=== PATIENT | female | born 1940 | race Caucasian/White ===

== ENCOUNTER 2017-12-22 06:57 | Emergency (ER) | payer MEDICARE ==
[~2017-12-22] VITALS: Ht 162.6 cm; Wt 61.2 kg
[2017-12-22] MEDS ORDERED: PROMETHAZINE HCL (IM) 25 MG/ML VIAL IV STA (07:27)
[2017-12-22] MEDS ORDERED: SODIUM CHLORIDE 0.9% 1000ML 1,000 ML IV STA (07:27)
[2017-12-22 07:36] LABS: BASOPHILS % 0.2 % (0.0-1.0); EOSINOPHILS # (AUTO) 0.1 (0.0-0.4); EOSINOPHILS % 1.1 % (0.0-6.0); HEMATOCRIT 41.2 % (34.2-44.1); HEMOGLOBIN 15.3 g/dL (12.0-16.0); LYMPHOCYTES # (AUTO) 2.5 (1.0-3.2); LYMPHOCYTES % 20.5 % (18.0-39.1); MEAN CORPUSCULAR HEMOGLOBIN 31.4 pg (28-32); MEAN CORPUSCULAR HGB CONC 37.1 g/dL (31-35); MEAN CORPUSCULAR VOLUME 84.6 fL (81-99); MONOCYTES # (AUTO) 0.6 (0.2-0.8); MONOCYTES % 4.6 % (4.4-11.3); NEUTROPHILS # (AUTO) 8.9 (2.1-6.9); NEUTROPHILS % 73.1 % (38.7-80.0); PLATELET COUNT 217 x10e3/uL (140-360); RED BLOOD COUNT 4.87 x10e6/uL (3.6-5.1); RED CELL DISTRIBUTION WIDTH 12.5 % (11.7-14.4)
[2017-12-22 08:00] LABS: ALANINE AMINOTRANSFERASE 23 IU/L (0-55); ALBUMIN 4.3 g/dL (3.5-5.0); ALBUMIN/GLOBULIN RATIO 1.2 (0.8-2.0); ALKALINE PHOSPHATASE 117 IU/L (40-150); ANION GAP 15.7 mmol/L (8-16); BLOOD UREA NITROGEN < 5 mg/dL (7-26); CALCIUM 9.2 mg/dL (8.4-10.2); CARBON DIOXIDE 23 mmol/L (22-29); CHLORIDE 91 mmol/L (98-107); CREATINE KINASE 124 IU/L (29-168); CREATININE, SERUM 0.89 mg/dL (0.57-1.11); EST GLOMERULAR FILTRATION RATE > 60 ML/MIN (60-); GLUCOSE 139 mg/dL (74-118); LIPASE 20 U/L (8-78); SODIUM 127 mmol/L (136-145)
[2017-12-22 08:03] LABS: BUN/CREATININE RATIO 6 (6-25)
[2017-12-22 08:04] LABS: POTASSIUM 2.7 mmol/L (3.5-5.1)
[2017-12-22] MEDS ORDERED: POTASSIUM CHLORIDE 20 MEQ TAB CR PO STA (08:06)
[2017-12-22 08:37] LABS: BILIRUBIN,URINE NEGATIVE (NEGATIVE); KETONES,URINE NEGATIVE (NEGATIVE); LEUKOCYTE ESTERASE ,URINE TRACE (NEGATIVE); NITRITE,URINE NEGATIVE (NEGATIVE); URINE UROBILINOGEN 0.2 mg/dL (0.2 - 1)
[2017-12-22 08:44] LABS: CLARITY,URINE CLEAR (CLEAR); COLOR,URINE YELLOW (YELLOW); PROTEIN,URINE DIPSTICK TRACE (NEGATIVE)
[2017-12-22 08:49] LABS: EPITHELIAL CELLS,URINE FEW /LPF; MUCUS,URINE FEW (RARE); RBC,URINE 0-5 /HPF (0-5); WBC,URINE (MAN) 0-5 /HPF (0-5)
[2017-12-22] MEDS ORDERED: TETRACAINE HCL 0.5% OPTH SOLN 4 ML BTL ONE (10:46)
[2017-12-22] MEDS ORDERED: FLUORESCEIN SOD(OPTH) 1 MG STRP ONE (10:46)
[2017-12-22] MEDS ORDERED: SODIUM CHLORIDE 0.9% 1000ML 1,000 ML ONE (10:47)
[2017-12-22] MEDS ORDERED: EYE IRRIGATION (OPTH) 120 ML BTL ONE (10:47)
== END 2017-12-22 09:40 | disposition home or self-care (01) ==
LOC: ER 06:57
DX: R11.2 Nausea with vomiting, unspecified (principal); E87.6 Hypokalemia; I10 Essential (primary) hypertension; E78.5 Hyperlipidemia, unspecified
CPT/HCPCS: 36415; 80053; 81001; 82550; 82553; 83690; 84484; 85025; 87086; 93005; 99284; J2550; J7030

== ENCOUNTER 2018-04-02 19:56 | Inpatient (IN) | payer MEDICARE ==
[~2018-04-02] VITALS: Ht 162.6 cm; Wt 58.3 kg
--- OUTSIDE RECORDS SUMMARY | 2018-04-02 19:59 | XMS REPORT ---
Author Organization Unknown Address [address] [place] [address] Phone [phone] Care Team Providers Care Commissioned Sales Associate Name Role Phone CRISTÓBAL "NISHA" GANESH BARFIELD 3 [phone] PAIGE HANLEY MD 111 [phone] Allergies Code Code System Name Reaction Severity Status Onset NKDA Medications Name Status Start Date Stop Date albuterol sulfate 2.5 mg/3 mL (0.083 %) solution for nebulization Active Not available alendronate 70 mg tablet Completed 06/05/2017 Aspirin Low Dose 81 mg tablet,delayed release Take 1 tablet every day by oral route for 90 days. Active Not available azithromycin 250 mg tablet Completed 12/06/2017 benazepril 20 mg tablet Take 1 tablet every day by oral route for 90 days. Active Not available ceftriaxone 1 gram solution for injection Take 1 g by injection route. Completed 12/06/2017 cephalexin 500 mg capsule Completed 09/05/2017 Cheratussin AC 10 mg-100 mg/5 mL oral liquid Take 10 mL every 4 hours by oral route. Completed 12/06/2017 12/06/2017 Citracal + D Slow Release 600 mg calcium-500 unit tablet,ext.release Take 1 tablet every day by oral route for 90 days. Active Not available Depo-Medrol 80 mg/mL suspension for injection Take 1 mL by injection route. Completed 12/06/2017 diazepam 2 mg tablet Take 1 tablet 3 times a day by oral route for 30 days. Completed 2017 diazepam 5 mg tablet Completed 03/28/2017 dicyclomine 20 mg tablet Active Not available famotidine 40 mg tablet Take 1 tablet every day by oral route at bedtime for 90 days. Active Not available hydrochlorothiazide 25 mg tablet Take 1 tablet every day by oral route for 90 days. Active Not available lactulose 10 gram/15 mL (15 mL) oral solution Take 30 mL twice a day by oral route for 90 days. Completed 03/28/2017 lactulose 10 gram/15 mL oral solution Completed 06/05/2017 latanoprost 0.005 % eye drops Active Not available levalbuterol HFA 45 mcg/actuation aerosol inhaler Completed 11/21/2017 levocetirizine 5 mg tablet Take 1 tablet every day by oral route as needed for 90 days. Completed 07/2018 Linzess 72 mcg capsule Take 1 capsule every day by oral route for 16 days. Completed 08/09/2017 lorazepam 0.5 mg tablet Take 1 tablet 3 times a day by oral route as needed for 30 days. Active Not available meloxicam 15 mg tablet Take 1 tablet every day by oral route for 90 days. Completed 12/27/2017 methocarbamol 750 mg tablet Take 1 tablet every day by oral route for 90 days. Completed 12/07/2016 ondansetron HCl 4 mg tablet Take 1 tablet every day by oral route. Completed 12/06/2017 12/27/2017 pantoprazole 40 mg tablet,delayed release Take 1 tablet every day by oral route in the morning for 90 days. Active Not available paroxetine 10 mg tablet Completed 12/06/2017 promethazine 12.5 mg tablet take 1 or 2 tablets every 6 hours as needed for nausea Active Not available raloxifene 60 mg tablet Completed 12/07/2016 simvastatin 40 mg tablet Take 1 tablet every day by oral route in the evening for 90 days. Active Not available Tylenol Extra Strength 500 mg tablet Take 2 tablets every 8 hours by oral route as needed for 90 days. Completed 09/05/2017 Ventolin HFA 90 mcg/actuation aerosol inhaler INHALE TWO PUFFS BY MOUTH EVERY 6 HOURS NEEDED Completed 11/21/2017 Zylet 0.3 %-0.5 % eye drops,suspension Completed 03/07/2017 Problems Name Status Onset Date Source Hypercholesterolemia Active 11/20/2016 Anxiety Active 11/20/2016 Hypertensive Disorder Active 11/20/2016 Gastroesophageal Reflux Disease Active 11/20/2016 Hiatal Hernia Active 11/20/2016 Irritable Bowel Syndrome Characterized by Constipation Active 11/20/2016 Chronic Sciatica Active 11/20/2016 Osteoporosis Active 11/20/2016 Nausea Active 11/20/2016 Age Related Macular Degeneration Active 09/05/2017 Open-angle Glaucoma - Borderline Active 09/05/2017 Atherosclerosis of Aorta Active 12/05/2017 Procedures Date Name Performed by 11/05/2010 Eye Surgery Information not available 11/05/2003 Cholecystectomy Information not available 11/05/2001 Hernia Repair Information not available 11/05/1983 Hysterectomy (Partial) Information not available 11/20/2016 MAMMO, Screening, Digital, Bilateral [facility] [address] [place] [address] (Work Place) 11/20/2016 Bone Density [facility] [address] [place], [place] [id number] (Work Place) 11/20/2016 Electrocardiogram [facility] [address] [facility] [address] [place] [phone] (Work Place) 03/28/2017 XR, Chest, 2 View [facility]) [address] [place], [place] [id number] (Work Place) 11/13/2017 MAMMO, Screening, Digital, Bilateral [facility]) [address] [place], [place] [id number] (Work Place) 12/06/2017 Electrocardiogram [facility] [address] [facility] [address] [place] [address] (Work Place) Lab Results Date Name Specimen Result Interpretation Description Value Range Status Address 12/27/2017 BMP, Serum or Plasma Low Bun 7.0 mg/dL 9.8-20.1 mg/dL Final [facility]: [address] Glucose 87 mg/dL 70-99 mg/dL Final [facility]: [address] Creatinine 0.74 mg/dL 0.57-1.11 mg/dL Final [facility]: [address] eGFR Non- >60 mL/min/1.73m2 >60 mL/min/ 1.73m2 Final [facility]: [address] [place] [address], [place] eGFR - >60 mL/min/1.73m2 >60 mL/min/1.73m2 Final [facility]: [address] [place] [address], [place] Low Sodium 134 mEq/L 136-145 mEq/L Final [facility]: [address] Potassium 4.2 mEq/L 3.5-5.1 mEq/L Final [facility]: [address] [place] Chloride 98 mmol/L 98-107 mmol/L Final [facility]: [address] [place] Calcium 9.2 mg/dL 8.4-10.2 mg/dL Final [facility]: [address] [place] Co2 27.7 mmol/L 23.0-31.0 mmol/L Final [facility]: [address] [place] Anion Gap 8 calc Final [facility]: [address] [place] 12/06/2017 Tech Slide Review High White Blood Cell Count 11.5 thousand/uL 3.8-10.8 thousand/uL Final [facility]: [address] [place] Normal Red Blood Cell Count 5.02 million/uL 3.80-5.10 million/ uL Final [facility]: [address] [place] Normal Hemoglobin 15.5 g/dL 11.7-15.5 g/dL Final [facility]: [address] [place] Normal Hematocrit 44.9 % 35.0-45.0 % Final [facility]: [address] [place] Normal Mcv 89.4 fL 80.0-100.0 fL Final [facility]: [address] [place] Normal Mch 30.9 pg 27.0-33.0 pg Final [facility]: [address] [place] Normal Mchc 34.5 g/dL 32.0-36.0 g/dL Final [facility]: [address] [place] Normal Rdw 12.7 % 11.0-15.0 % Final [facility]: [address] [place] Normal Platelet Count 246 thousand/uL 140-400 thousand/uL Final [facility]: [address] [place] Normal Mpv 10.1 fL 7.5-12.5 fL Final [facility]: [address] [place] 12/06/2017 Differential, Manual, Blood High Absolute Neutrophils 8131 cells/uL 5107-3701 cells/uL Final [facility]: [address] [place] Normal Absolute Lymphocytes 2553 cells/uL 850-3900 cells/uL Final [facility]: [address] [place] Normal Absolute Monocytes 472 cells/uL 200-950 cells/uL Final [facility]: [address] [place] Normal Absolute Eosinophils 345 cells/uL 15-500 cells/uL Final [facility]: [address] [place] Normal Absolute Basophils 0 cells/uL 0-200 cells/uL Final [facility]: [address] [place] Normal Neutrophils 70.7 % Final [facility]: [address] [place] Normal Lymphocytes 22.2 % Final [facility]: [address] [place] Normal Monocytes 4.1 % Final [facility]: [address] [place] Normal Eosinophils 3.0 % Final [facility]: [address] [place] Normal Basophils 0 % Final [facility]: [address] [place] 12/06/2017 CMP, Serum or Plasma Alt 31 U/L 0-55 U/L Final [facility]: [address] Ast 27 U/L 5-34 U/L Final [facility]: [address] [place] [address] Bun 10.0 mg/dL 9.8-20.1 mg/dL Final [facility]: [address] [place] [address] Alk Phos 112 unit/L 40-150 unit/L Final [facility]: [address] [facility] High Glucose 108 mg/dL 70-99 mg/dL Final [facility]: [address] [place] [address] Albumin 4.4 g/dL 3.5-5.0 g/dL Final [facility] [address] [facility] Creatinine 0.84 mg/dL 0.57-1.11 mg/dL Final [facility]: [address] [facility] eGFR Non- >60 mL/min/1.73m2 >60 mL/min/ 1.73m2 Final [facility]: [address] Total Bilirubin 1.1 mg/dL 0.2-1.2 mg/dL Final [facility]: [address] [facility] eGFR - >60 mL/min/1.73m2 >60 mL/min/1.73m2 Final [facility]: [address] [facility] Low Sodium 135 mEq/L 136-145 mEq/L Final [facility]: [address] Potassium 4.7 mEq/L 3.5-5.1 mEq/L Final [facility]: [address] Low Chloride 96 mmol/L 98-107 mmol/L Final [facility]: [address] Total Protein 7.6 g/dL 6.4-8.3 g/dL Final [facility]: [address] Calcium 10.0 mg/dL 8.4-10.2 mg/dL Final [facility]: [address] Co2 29.0 mmol/L 23.0-31.0 mmol/L Final [facility]: [address] Anion Gap 10 calc Final [facility]: [address] [facility] 12/06/2017 Lipid Panel, Serum Hdl 40 mg/dL 40-60 mg/dL Final [facility]: [address] Triglyceride 97 mg/dL 0-149 mg/dL Final [facility]: [address] VLDL Calc. 19 mg/dL Final [facility]: [address] cholesterol/HDL Ratio 4.7 mg/dL Final [facility]: [address] non-HDL Cholesterol Calc. 149 mg/dL 0-160 mg/dL Final [facility]: [address] Cholesterol 189 mg/dL 0-199 mg/dL Final [facility]: [address] LDL Calc. 130 mg/dL 0-130 mg/dL Final [facility]: [address] 12/06/2017 T4, Total, Serum T4 Total 7.46 ug/dL 4.87-11.72 ug/ dL Final [facility]: [address] [place] [address], [place] 12/06/2017 TSH, Serum or Plasma Tsh 2.311 uIU/mL 0.350-4.940 uIU /mL Final [facility]: [address] [place] [address], [place] 08/09/2017 Culture, Urine ABNORMAL Culture, Urine, Routine see note Final [facility]: [address] [address], [place] 11/20/2016 Lipid Panel, Serum High Cholesterol, Total 206 mg/dL 125-200 mg/dL Final [facility] Lab: [address], [place] Normal HDL Cholesterol 49 mg/dL > or=46 mg/dL Final [facility] Lab: [address], [place] Normal Triglycerides 106 mg/dL <150 mg/dL Final [facility] Lab: [address], [place] High LDL-cholesterol 136 mg/dL (calc) <130 mg/dL (calc) Final [facility] Lab: [address], [place] Normal Chol/hdlc Ratio 4.2 (calc) < or=5.0 (calc) Final [facility] Lab: [address], [place] Normal Non HDL Cholesterol 157 mg/dL (calc) Final [facility] Lab: [address], [place] 11/20/2016 CMP, Serum or Plasma High Glucose 115 mg/dL 65-99 mg/ dL Final [facility] Lab: [address], [place] Normal Urea Nitrogen (BUN) 11 mg/dL 7-25 mg/dL Final [facility] Lab: [address], [place] Normal Creatinine 0.90 mg/dL 0.60-0.93 mg/dL Final [facility] Lab: [address], [place] Normal eGFR Non-afr. [place] 62 mL/min/1.73m2 > or=60 mL/min/ 1.73m2 Final [facility] Lab: [address], [place] Normal eGFR 72 mL/min/1.73m2 > or=60 mL/min/ 1.73m2 Final [facility] Lab: [address], [place] BUN/creatinine Ratio not applicable (calc) 6-22 (calc) Final [facility] Lab: [address] [facility], [place] Normal Sodium 139 mmol/L 135-146 mmol/L Final [facility] Lab: [address] [facility], [place] Normal Potassium 4.0 mmol/L 3.5-5.3 mmol/L [facility] Lab: [address] [facility], [place] Normal Chloride 101 mmol/L 98-110 mmol/L [facility] Lab: [address] [facility], [place] Normal Carbon Dioxide 27 mmol/L 20-31 mmol/L [facility] Lab: [address] [facility], [place] Normal Calcium 9.8 mg/dL 8.6-10.4 mg/dL [facility] Lab: [address] [facility], [place] Normal Protein, Total 7.5 g/dL 6.1-8.1 g/dL Final [facility] Lab: [address] [place] [address], [place] Normal Albumin 4.6 g/dL 3.6-5.1 g/dL Final [facility] Lab: [address] [place] [address], [place] Normal Globulin 2.9 g/dL (calc) 1.9-3.7 g/dL (calc) [facility] Lab: [address] [place] [address], [place] Albumin/globulin Ratio 1.6 (calc) 1.0-2.5 (calc) [facility] Lab: [address] [place] [address], [place] Normal Bilirubin, Total 0.6 mg/dL 0.2-1.2 mg/dL Final [facility] Lab: [address] [place] [address], [place] Normal Alkaline Phosphatase 100 U/L 33-130 U/L [facility] Lab: [address] [place] [address], [place] Normal Ast 22 U/L 10-35 U/L [facility] Lab: [address] [facility], [place] Normal Alt 18 U/L 6-29 U/L [facility] Lab: [address] [facility], [place] 11/20/2016 CBC W/ Auto Diff Normal White Blood Cell Count 10.4 thousand/uL 3.8-10.8 thousand/uL Final [facility] Lab: [address] [facility], [place] Normal Red Blood Cell Count 4.68 million/uL 3.80-5.10 million/ uL Final [facility] Lab: [address], [place] Normal Hemoglobin 14.4 g/dL 11.7-15.5 g/dL Final [facility] Lab: [address], [place] Normal Hematocrit 43.8 % 35.0-45.0 % Final [facility] Lab: [address], [place] Normal Mcv 93.7 fL 80.0-100.0 fL Final [facility] Lab: [address], [place] Normal Mch 30.7 pg 27.0-33.0 pg Final [facility] Lab: [address], [place] Normal Mchc 32.8 g/dL 32.0-36.0 g/dL Final [facility] Lab: [address], [place] Normal Rdw 13.5 % 11.0-15.0 % Final [facility] Lab: [address], [place] Normal Platelet Count 222 thousand/uL 140-400 thousand/uL Final [facility] Lab: [address], [place] Normal Mpv 9.3 fL 7.5-11.5 fL Final [facility] Lab: [address], [place] Normal Absolute Neutrophils 6448 cells/uL 6055-0603 cells/uL Final [facility] Lab: [address], [place] Normal Absolute Lymphocytes 3318 cells/uL 850-3900 cells/uL Final [facility] Lab: [address], [place] Normal Absolute Monocytes 458 cells/uL 200-950 cells/uL Final [facility] Lab: [address], [place] Normal Absolute Eosinophils 146 cells/uL 15-500 cells/uL Final [facility] Lab: [address], [place] Normal Absolute Basophils 31 cells/uL 0-200 cells/uL Final [employer] [facility] Lab: [address], [place] Normal Neutrophils 62.0 % Final [facility] Lab: [address], [place] Normal Lymphocytes 31.9 % Final [facility] Lab: [address], [place] Normal Monocytes 4.4 % Final [facility] Lab: [address], [place] Normal Eosinophils 1.4 % Final [facility] Lab: [address] [facility], [place] Normal Basophils 0.3 % Final [facility] Lab: [address] [facility], [place] 11/20/2016 T4, Total, Serum T4, Total (Thyroxine) 8.6 mcg/dL 4.8 -10.4 mcg/dL Final [facility] Lab: [address] [facility], [place] 11/20/2016 TSH, Serum or Plasma Normal Tsh 2.91 mIU/L 0.40-4.50 mIU/L Final [facility] Lab: [address] [facility], [place] Electrocardiogram No observation recorded. [facility]: [address] [facility] [address], [place] Urinalysis, Dipstick Color Color dark yellow [facility]: [address] [facility] [address], [place] Color Appearance cloudy [facility]: [address] [facility] [address], [place] Color Glucose negative [facility]: [address] [facility] [address], [place] Color Bilirubin negative [facility]: [address] [facility] [address], [place] Color Ketones small [facility]: [address] [facility] [address], [place] Color Specific Hunter 1.010 [facility]: [address] [facility] [address], [place] Color Blood small [facility]: [address] [facility] [address], [place] Color PH 6.0 [facility]: [address] [facility] [address], [place] Color Protein negative [facility]: [address] [facility] [address], [place] Color Urobilinogen 1 [facility]: [address] [facility] [address], [place] Color Nitrites positive [facility]: [address] [facility] [address], [place] Color Leukocytes moderate [facility]: [address] [facility] [address], [place] Electrocardiogram Rate & Rhythm [facility]: [address] [facility] [address], [place] Qrs [facility]: [address] [facility] [address], [place] CA Interval [facility]: [address] [facility] 200, [place] QRS Duration [facility]: [address] [facility] 200, [place] QT Interval [facility]: [address] [facility] 200, [place] Past Encounters 01/14/2018 Anorexia Symptom; Hypertensive Disorder; Anxiety; Nausea; Open-angle Glaucoma - Borderline Cristóbal Mcmahon MD: [id number] [facility], [facility] [address], [place] [address], Ph. 12/27/2017 Nausea; Hypokalemia Alpa Brady RADIOPHONE OPERATOR: [id number] [facility], [address] [address], Ph. 12/06/2017 Adult Health Examination; Body Mass Index 20-24 - Normal; Hypertensive Disorder ; Gastroesophageal Reflux Disease; Chronic Sciatica; Hypercholesterolemia; Atherosclerosis of Aorta; Anxiety; Irritable Bowel Syndrome Characterized by Constipation; Age Related Macular Degeneration; Open-angle Glaucoma - Borderline ; Nausea; Osteoporosis; Depression Screening; Advance Directive Discussed with Patient; Screening for Malignant Neoplasm of Breast; Screening for Malignant Neoplasm of Colon; Screening for Osteoporosis Cristóbal Mcmahon MD: [id number] [facility], [address] [address], Ph. 11/21/2017 Asthmatic Bronchitis Vladimir Winn MD: [address] [place] [phone], Ph. 11/13/2017 Anxiety; Gastroesophageal Reflux Disease; Chronic Sciatica; Screening Mammography; Atherosclerosis of Aorta; Hypertensive Disorder; Irritable Bowel Syndrome Characterized by Constipation; Age Related Macular Degeneration; Open- angle Glaucoma - Borderline; Hypercholesterolemia; Osteoporosis; Hiatal Hernia Cristóbal Mcmahon MD: [id number] [facility], [address] [address], Ph. 09/05/2017 Anxiety; Hypertensive Disorder; Gastroesophageal Reflux Disease; Atherosclerosis of Aorta Cristóbal Mcmahon MD: [id number] [facility], [address] [address], Ph. 08/09/2017 Acute Urinary Tract Infection; Influenza Vaccination; Body Mass Index 25-29 - Overweight Carmen Forman MD: [id number] [facility], [address] [address], Ph. 06/05/2017 Anxiety; Gastroesophageal Reflux Disease; Irritable Bowel Syndrome Characterized by Constipation; Body Mass Index 25-29 - Overweight; Glaucoma Cristóbal Mcmahon MD: [id number] [facility], [address] [address], Ph. 03/28/2017 Hypertensive Disorder; Impacted Cerumen in Right Ear; Cough; Acute Bronchitis Alpa Abreu RADIOPHONE OPERATOR: [id number] [facility], [address], [place] [address], Ph. 03/07/2017 Anxiety; Gastroesophageal Reflux Disease; Hypertensive Disorder; Chronic Sciatica; Hypercholesterolemia; Irritable Bowel Syndrome; Chronic Constipation Cristóbal Mcmahon MD: [id number] [facility], [facility] [address], [place] [address], Ph. 12/07/2016 Hypercholesterolemia; Osteoporosis; Chronic Sciatica; Hypertensive Disorder; Gastroesophageal Reflux Disease Cristóbal Mcmahon MD: [id number] [facility], [facility] [address], [place] [address], Ph. 11/20/2016 Adult Health Examination; Body Mass Index 20-24 - Normal; Hypertensive Disorder ; Hypercholesterolemia; Primary Open Angle Glaucoma; Osteoporosis; Gastroesophageal Reflux Disease; Anxiety; Allergic Rhinitis; Screening for Malignant Neoplasm of Breast; Chronic Sciatica; Depression Screening; Nausea; Hiatal Hernia CARLOS Real: [address] [facility], [facility] [address], [place] [address], Ph. Social History Smoking Status Never Smoker Vaccine List Vaccine Type influenza, high dose seasonal 08/09/20170.5 mL pneumococcal, unspecified formulation 11/05/2009 11/05/2011 Notes: DECLINE'S ALL VACCINE'S-12/06/2017 Plan of Care Patient Instructions Increase PO fluids. Complete all antibiotics as prescribed. Call or RTC for worsening of symptoms or no improvement in 2-3 days. Reminders Provider Appointments None recorded. Lab None recorded. Referral None recorded. Procedures None recorded. Surgeries None recorded. Imaging None recorded. Vitals 01/14/2018 10:45AM Est Patient Height Weight BMI Blood Pressure 5 ft 3 in 132 lbs 23.4 kg/m2 (1) 185/101 mm[Hg] (2) 183/95 mm[Hg] 12/27/2017 02:45PM Est Patient Height Weight BMI Blood Pressure 5 ft 3 in 137.5 lbs 24.4 kg/m2 (1) 163/90 mm[Hg] (2) 155/88 mm[Hg] 12/06/2017 01:45PM AWV Height Weight BMI Blood Pressure 5 ft 3 in 137.2 lbs 24.3 kg/m2 124/74 mm[Hg] 11/21/2017 02:45PM Est Patient Height Weight Blood Pressure 5 ft 3 in 132/78 mm[Hg] 11/13/2017 04:15PM Est Patient Height Weight BMI Blood Pressure 5 ft 3 in 144 lbs 25.5 kg/m2 175/90 mm[Hg] 09/05/2017 09:15AM Est Patient Height Weight BMI Blood Pressure 5 ft 3 in 141 lbs 25 kg/m2 156/81 mm[Hg] 08/09/2017 02:45PM Work In Same Day Height Weight BMI Blood Pressure 5 ft 3 in 142 lbs 25.2 kg/m2 145/82 mm[Hg] 06/05/2017 09:15AM Est Patient Height Weight BMI Blood Pressure 5 ft 3 in 145.6 lbs 25.8 kg/m2 (1) 176/94 mm[Hg] (2) 168/84 mm[Hg] 03/28/2017 10:00AM Est Patient Height Weight BMI Blood Pressure 5 ft 3 in 149 lbs 26.4 kg/m2 134/87 mm[Hg] 03/07/2017 04:15PM Est Patient Height Weight BMI Blood Pressure 5 ft 3 in 144 lbs 25.5 kg/m2 191/105 mm[Hg] 12/07/2016 04:30PM Est Patient Height Weight BMI Blood Pressure 5 ft 3 in 137.2 lbs 24.3 kg/m2 162/85 mm[Hg] 11/20/2016 10:30AM MYSQL DBA/EST CPX Height Weight BMI Blood Pressure 5 ft 3 in 139 lbs 24.6 kg/m2 171/90 mm[Hg]
[2018-04-02 20:57] LABS: BASOPHILS % 0.2 % (0.0-1.0); EOSINOPHILS % 0.3 % (0.0-6.0); HEMATOCRIT 39.6 % (34.2-44.1); HEMOGLOBIN 14.4 g/dL (12.0-16.0); LYMPHOCYTES # (AUTO) 2.4 (1.0-3.2); LYMPHOCYTES % 15.9 % (18.0-39.1); MEAN CORPUSCULAR HEMOGLOBIN 32.4 pg (28-32); MEAN CORPUSCULAR HGB CONC 36.4 g/dL (31-35); MONOCYTES # (AUTO) 0.8 (0.2-0.8); NEUTROPHILS # (AUTO) 11.8 (2.1-6.9); NEUTROPHILS % 77.9 % (38.7-80.0); PLATELET COUNT 300 x10e3/uL (140-360); RED BLOOD COUNT 4.45 x10e6/uL (3.6-5.1); RED CELL DISTRIBUTION WIDTH 12.5 % (11.7-14.4)
[2018-04-02 21:16] LABS: ALANINE AMINOTRANSFERASE 18 IU/L (0-55); ALBUMIN 4.2 g/dL (3.5-5.0); ALBUMIN/GLOBULIN RATIO 1.2 (0.8-2.0); ALKALINE PHOSPHATASE 97 IU/L (40-150); ANION GAP 16.4 mmol/L (8-16); BLOOD UREA NITROGEN 10 mg/dL (7-26); BUN/CREATININE RATIO 7 (6-25); CALCIUM 9.8 mg/dL (8.4-10.2); CARBON DIOXIDE 23 mmol/L (22-29); CHLORIDE 91 mmol/L (98-107); CREATINE KINASE 61 IU/L (29-168); CREATININE, SERUM 1.38 mg/dL (0.57-1.11); EST GLOMERULAR FILTRATION RATE 37 ML/MIN (60-); GLUCOSE 126 mg/dL (74-118); POTASSIUM 3.4 mmol/L (3.5-5.1); SODIUM 127 mmol/L (136-145)
--- NOTE | 2018-04-02 21:57 | Diagnostic Imaging Report ---
EXAMINATION: Head CT HISTORY: Syncope, possible head trauma COMPARISON: None. TECHNIQUE: Multidetector axial images were obtained without contrast from the foramen magnum to the vertex . The images were reconstructed using brain and bone algorithms. Thin section brain images were reformatted into coronal and sagittal planes. Intravenous contrast: None. Motion/streaking artifact limits the evaluation of the skull base and posterior cranial fossa. FINDINGS: Parenchyma: 1. Few scattered white matter hypodensities, most likely nonspecific chronic microvascular ischemic changes. 2. No mass or hemorrhage. No CT evidence of acute territorial vascular insult. Extra-axial spaces:No abnormal density. No extra-axial fluid collections Brain volume: Normal for age. Ventricles: No hydrocephalus or displacement. Arteries: No density suggestive of thrombus. Dural sinuses: No abnormal density. Extra-axial spaces: No abnormal density. Foramen magnum: No mass, Chiari malformation, or basilar invagination. Sella: No obvious mass. Paranasal/mastoid sinuses: Imaged portions unremarkable. Skull/Scalp: No lytic or blastic lesions. No fractures. IMPRESSION: 1. No acute post traumatic intracranial hemorrhage. 2. Mild chronic microvascular ischemic changes. Signed by: Dr. Ivelisse Cole M.D. on 04/02/2018 9:54 PM
[2018-04-02 22:12] LABS: CLARITY,URINE SL CLOUDY (CLEAR); COLOR,URINE YELLOW (YELLOW); LEUKOCYTE ESTERASE ,URINE TRACE (NEGATIVE); NITRITE,URINE NEGATIVE (NEGATIVE); PROTEIN,URINE DIPSTICK 2+ (NEGATIVE)
[2018-04-02 22:13] LABS: BILIRUBIN,URINE 2+ (NEGATIVE); KETONES,URINE TRACE (NEGATIVE); URINE UROBILINOGEN 8 mg/dL (0.2 - 1)
[2018-04-02 22:21] LABS: AMORPHOUS SEDIMENT,URINE MANY (FEW); BACTERIA,URINE MODERATE /HPF; EPITHELIAL CELLS,URINE MODERATE /LPF; MUCUS,URINE MODERATE (RARE); WBC,URINE (MAN) 21-50 /HPF (0-5)
--- NOTE | 2018-04-02 22:23 | Diagnostic Imaging Report ---
CHEST SINGLE (PORTABLE), 04/02/2018 8:37 PM Technique: CHEST SINGLE (PORTABLE) Comparison: None Clinical history: Syncope Findings: Normal cardiac silhouette. Lower parathoracic density which may reflect a hiatal hernia. Large lung volumes without consolidation or effusion. Impression: 1. No acute abnormality. 2. Probable hiatal hernia. 3. Calcific densities projecting over the lower hemithorax Recommend follow-up upright PA and lateral when feasible. Signed by: Dr Trisha Carrillo MD on 04/02/2018 10:19 PM
[2018-04-02] MEDS ORDERED: KCL 20MEQ/.9 SOD CHL 1,000 ML IV ONE (23:00)
[2018-04-02] MEDS ORDERED: ONDANSETRON HCL 4 MG ORAL DISINTEGRATING TAB PO PRN (23:00)
[2018-04-02] MEDS: CEFTRIAXONE SOD 1 GM VIAL IV SCH (23:30)
[2018-04-02] MEDS ORDERED: LORAZEPAM0.5 MG PO (23:35)
[2018-04-02] MEDS ORDERED: PANTOPRAZOLE SO40 MG PO (23:35)
[2018-04-02] MEDS ORDERED: SIMVASTATIN40 MG PO (23:35)
[2018-04-02] MEDS ORDERED: PRAMIPEXOLE DI0.5 MG PO (23:35)
[2018-04-02] MEDS ORDERED: HYDROCHLOROTHIA25 MG PO (23:35)
[2018-04-02] MEDS ORDERED: BENAZEPRIL HCL20 MG PO (23:35)
[2018-04-02] MEDS ORDERED: FAMOTIDINE40 MG PO (23:35)
[2018-04-02] MEDS ORDERED: DICYCLOMINE HCL20 MG PO (23:35)
[2018-04-02] MEDS ORDERED: LORAZEPAM 0.5 MG TAB PO PRN (23:45)
[2018-04-02] MEDS ORDERED: DICYCLOMINE HCL 20 MG TAB PO PRN (23:45)
--- OUTSIDE RECORDS SUMMARY | 2018-04-02 23:55 | XMS REPORT ---
Author Author [facility] Address Unknown Phone Unavailable Care Team Providers Care Community Health Director Name Role Phone ZARI ANNE Unavailable Unavailable Problems This patient has no known problems. Allergies, Adverse Reactions, Alerts This patient has no known allergies or adverse reactions. Medications This patient has no known medications. Results Test Description Test Time Test Comments Text Results Atomic Results Result Comments CT BRAIN WO [place] [address] Patient Name: PATO LEMA MR #: [id number] : 1940 Age/Sex: 78/F Req #: [id number] Adm Physician: Ordered by: ZARI ANNE MD Report # : [id number] Location: ER Room/Bed: Procedure: [id number] CT/CT BRAIN WO Exam Date: 04/02/18 Exam Time: 2134 REPORT STATUS: Signed EXAMINATION: Head CT HISTORY: Syncope , possible head trauma COMPARISON: None. TECHNIQUE: Multidetector axial images were obtained without contrast from the foramen magnum to the vertex . The images were reconstructed using brain and bone algorithms. Thin section brain images were reformatted into coronal and sagittal planes. Intravenous contrast: None. Motion/streaking artifact limits the evaluation of the skull base and posterior cranial fossa. FINDINGS: Parenchyma: 1. Few scattered white matter hypodensities, most likely nonspecific chronic microvascular ischemic changes. 2. No mass or hemorrhage. No CT evidence of acute territorial vascular insult. Extra-axial spaces:No abnormal density. No extra-axial fluid collections Brain volume: Normal for age. Ventricles: No hydrocephalus or displacement. Arteries : No density suggestive of thrombus. Dural sinuses: No abnormal density. Extra-axial spaces: No abnormal density. Foramen magnum : No mass, Chiari malformation, or basilar invagination. Sella: No obvious mass. Paranasal/mastoid sinuses: Imaged portions unremarkable. Skull/Scalp: No lytic or blastic lesions. No fractures. IMPRESSION: 1. No acute post traumatic intracranial hemorrhage. 2. Mild chronic microvascular ischemic changes. Signed by: Dr. Ilir Cole M.D. on 04/02/2018 9:54 PM Dictated By: ILIR COLE MD 53 Transcribed By: NADINE on 04/02/182153 COPY TO: ZARI ANNE MD CHEST SINGLE (PORTABLE) [place] [address] Patient Name: PATO LEMA MR #: [id number] : 1940 Age/Sex: 78/F Req #: [id number] Adm Physician: Ordered by: ZARI ANNE MD Report #: [id number] Location: ER Room/Bed: ___ Procedure: [id number] DX/CHEST SINGLE (PORTABLE) Exam Date: 04/02/18 Exam Time: 2143 REPORT STATUS: Signed CHEST SINGLE (PORTABLE), 04/02/2018 8:37 PM Technique: CHEST SINGLE (PORTABLE) Comparison: None Clinical history: Syncope Findings: Normal cardiac silhouette. Lower parathoracic density which may reflect a hiatal hernia. Large lung volumes without consolidation or effusion. Impression: 1. No acute abnormality. 2. Probable hiatal hernia. 3. Calcific densities projecting over the lower hemithorax Recommend follow-up upright PA and lateral when feasible. Signed by: Dr Espinoza Carrillo MD on 04/02/2018 10:19 PM Dictated By: ESPINOZA CARRILLO MD 18 Transcribed By: NADINE on 04/02/182218 COPY TO: ZARI ANNE MD
[2018-04-03] VITALS (8 sets, daily range): BP systolic 96–142; BP diastolic 46–81
[2018-04-03] MEDS ORDERED: LATANOPROST2.5 ML OP (01:57)
[2018-04-03 06:51] LABS: BASOPHILS % 0.3 % (0.0-1.0); EOSINOPHILS # (AUTO) 0.1 (0.0-0.4); HEMATOCRIT 31.8 % (34.2-44.1); HEMOGLOBIN 11.4 g/dL (12.0-16.0); LYMPHOCYTES # (AUTO) 2.1 (1.0-3.2); LYMPHOCYTES % 26.8 % (18.0-39.1); MEAN CORPUSCULAR HEMOGLOBIN 32.5 pg (28-32); MEAN CORPUSCULAR HGB CONC 35.8 g/dL (31-35); MEAN CORPUSCULAR VOLUME 90.6 fL (81-99); MONOCYTES # (AUTO) 0.7 (0.2-0.8); MONOCYTES % 8.4 % (4.4-11.3); PLATELET COUNT 217 x10e3/uL (140-360); RED BLOOD COUNT 3.51 x10e6/uL (3.6-5.1); RED CELL DISTRIBUTION WIDTH 12.6 % (11.7-14.4)
[2018-04-03 07:26] LABS: CREATINE KINASE 40 IU/L (29-168)
[2018-04-03 07:53] LABS: ALANINE AMINOTRANSFERASE 12 IU/L (0-55); ALBUMIN 3.2 g/dL (3.5-5.0); ALBUMIN/GLOBULIN RATIO 1.2 (0.8-2.0); ALKALINE PHOSPHATASE 75 IU/L (40-150); ANION GAP 11.5 mmol/L (8-16); BLOOD UREA NITROGEN 10 mg/dL (7-26); BUN/CREATININE RATIO 11 (6-25); CALCIUM 8.5 mg/dL (8.4-10.2); CARBON DIOXIDE 23 mmol/L (22-29); CHLORIDE 94 mmol/L (98-107); CREATININE, SERUM 0.89 mg/dL (0.57-1.11); EST GLOMERULAR FILTRATION RATE > 60 ML/MIN (60-); GLUCOSE 116 mg/dL (74-118); POTASSIUM 3.5 mmol/L (3.5-5.1); SODIUM 125 mmol/L (136-145)
[2018-04-03] MEDS ORDERED: ACETAMINOPHEN 325 MG TAB PO PRN (08:00)
[2018-04-03] MEDS ORDERED: HYDRALAZINE HCL 20 MG/ML VIAL IV PRN (08:00)
[2018-04-03] MEDS ORDERED: ONDANSETRON HCL 4 MG ORAL DISINTEGRATING TAB PO PRN (08:00)
[2018-04-03] MEDS ORDERED: ONDANSETRON HCL INJ 2 MG/ML VIAL IV PRN (08:00)
[2018-04-03] MEDS ORDERED: SODIUM CHLORIDE 1 GM TAB PO SCH ×2 (08:15→08:30)
[2018-04-03] MEDS ORDERED: HYDROCHLOROTHIAZIDE 25 MG TAB PO SCH (09:00)
[2018-04-03] MEDS ORDERED: SIMVASTATIN 40 MG TAB PO SCH (09:00)
[2018-04-03] MEDS: BENAZEPRIL HCL 10 MG TAB PO SCH (09:00)
[2018-04-03] MEDS: PANTOPRAZOLE SOD 40 MG TABEC PO SCH (09:24)
[2018-04-03] MEDS: SODIUM CHLORIDE 0.9% 1000ML 1,000 ML IV SCH ×2 (09:30→15:55)
[2018-04-03] MEDS: METOCLOPRAMIDE HCL 10 MG/2ML VIAL IV SCH ×3 (11:03→21:30)
--- NOTE | 2018-04-03 12:28 | Consultation ---
DATE OF CONSULTATION: April 03, 2018 NEPHROLOGY CONSULTATION REASON FOR CONSULTATION: Hyponatremia. HPI: This is a 78-year-old female with past medical history of hypertension, hiatal hernia, GERD, hyperlipidemia, and neuropathy, who comes into the ED after having a syncopal episode at home. The patient reports that she was at a local grocery store, became very nauseated, passed out and hit her head. She remembers when the event occurred. The patient was seen and evaluated at bedside on the medical floor and further interviewed. She reports taking hydrochlorothiazide for underlying blood pressure control. She denies any lower extremity edema. Denies any [id number] medications including herbal supplements. She denies any antidepressant medications except for lorazepam for anxiety. Denies any vomiting or decreased oral intake. Does not have a history of diabetes as well. There are no reports of any history of heart failure or liver failure. The patient reports that several years ago she was told to have low sodium, but since then no one has ever told her that her sodium was low, and she does report seeing her primary care physician pretty frequently and has labs occasionally during her visits. The patient was seen and evaluated at bedside, currently doing well with no other complaints. REVIEW OF SYSTEMS: Pertinent positives: Nausea, syncopal episode. Pertinent negatives: Denies any chest pain, palpitations, vomiting, dysuria, hematuria, frequency, urgency, lightheadedness, dizziness, abdominal pain, headache, shortness of breath, or any other complaints. The rest of the 14-point review of systems have been reviewed with the patient and are negative. ALLERGIES: NO KNOWN DRUG ALLERGIES. HOME MEDICATIONS 1. Benazepril 20 mg daily. 2. Dicyclomine 20 mg p.o. b.i.d. 3. Pepcid 40 mg daily. 4. Hydrochlorothiazide 25 mg daily. 5. Lorazepam 0.5 mg p.o. t.i.d. p.r.n. for anxiety. 6. Protonix. 7. Pramipexole 0.5 mg at bedtime. 8. Simvastatin 40 mg daily. PAST MEDICAL HISTORY: Hypertension, restless legs syndrome, hyperlipidemia. SURGICAL HISTORY: She reports none. FAMILY HISTORY: Hypertension, diabetes. SOCIAL HISTORY: She lives with family. Good social support. No drugs, no alcohol. Does not smoke. VITAL SIGNS: Temperature is 98.8. Pulse is 78. Respiratory rate is 19. Blood pressure is 96/46. Her pulse ox is 100% on room air. LABS: White count 7.8, hemoglobin 11.4, hematocrit 31, platelets 217. Chemistries: Sodium on admission was 127, now 125. Potassium 3.5, chloride 94, bicarb 23, anion gap 11, BUN 10, creatinine 0.89, glucose 116, calcium 8.5, AST 15, ALT 12, alk phos 75. Troponins are negative. Albumin is 3.2. UA is consistent with UTI. MICROBIOLOGY: Urine culture is pending. IMAGING STUDIES: Chest x-ray: No acute abnormality. There is evidence of a hiatal hernia. CT brain: No acute post-traumatic intracranial hemorrhage. Mild chronic microvascular ischemic changes. PHYSICAL EXAMINATION GENERAL: Not in acute distress. Alert, oriented times 3, cooperative on exam. HEENT: Head is normocephalic, atraumatic. Eyes: Pupils are equal, round and reactive to light bilaterally. Extraocular movements intact bilaterally. NECK: Supple with good range of motion. THROAT: No evidence of any erythema or exudates in the posterior pharynx. Has poor dentition. PULMONARY: Clear to auscultation bilaterally. No wheezing, no rales, no rhonchi, no crackles appreciated. CARDIOVASCULAR: Positive S1, S2. No murmurs, rubs or gallops appreciated. ABDOMEN: Soft, nondistended, nontender to palpation. Bowel sounds present. MUSCULOSKELETAL: Strength is 5/5 throughout. No evidence of any musculoskeletal deficit on examination. No weakness appreciated. NEUROLOGICAL: Cranial nerves II through XII are grossly intact. No evidence of any neurological deficits on exam. SKIN: Intact. Warm to touch. Good capillary refill. PSYCHIATRIC: Normal affect and mood. EXTREMITIES: No edema. Good range of motion throughout. IMPRESSION 1. Euvolemic, hypotonic, hyponatremic. 2. Acute kidney injury secondary to dehydration. 3. Syncope, likely secondary to dehydration. 4. Urinary tract infection. PLAN: At this time, we will get urine electrolytes, urine chloride, urine sodium, urine osmol, serum osmol, TSH level, baseline cortisol in the morning. Put on salt tabs 2 g p.o. b.i.d. times 2 doses. Volume restriction of 1.2 liters total in a day. Hold hydrochlorothiazide. The patient will likely be discharged on no hydrochlorothiazide, and a different antihypertensive medication is recommended. Will put on NS at 50 mL per hour. Repeat sodium in the morning. Will continue to monitor very closely. I am unsure of the patient's baseline sodium, but it seems like she has had this in the past. I am thinking this is likely due to hydrochlorothiazide as she reports she has been taking this drug for several years now. She is not on any antidepressant medications to indicate SIADH at this time. Chest x-ray was normal. We will get these labs and determine the final course of action. Thank you so much for this consultation. We will continue to follow with you. Job#: [id number]
[2018-04-03 14:57] LABS: CREATINE KINASE 46 IU/L (29-168)
[2018-04-03] MEDS: SODIUM CHLORIDE 1 GM TAB PO SCH (17:43)
[2018-04-03] MEDS ORDERED: LATANOPROST(OPTH) 2.5 ML BTL OP SCH (21:00)
[2018-04-03] MEDS ORDERED: PRAMIPEXOLE DIHYDROCHLORIDE 0.25 MG TAB PO SCH (21:00)
[2018-04-03] MEDS ORDERED: FAMOTIDINE 20 MG TAB PO SCH (21:00)
[2018-04-03] MEDS: CEFTRIAXONE SOD 1 GM VIAL IV SCH (21:30)
[2018-04-04] VITALS: BP 122/58
[2018-04-04 04:00] VITALS: BP 128/58
[2018-04-04 07:16] LABS: BASOPHILS % 0.4 % (0.0-1.0); EOSINOPHILS # (AUTO) 0.1 (0.0-0.4); EOSINOPHILS % 1.1 % (0.0-6.0); HEMATOCRIT 34.7 % (34.2-44.1); HEMOGLOBIN 12.2 g/dL (12.0-16.0); LYMPHOCYTES # (AUTO) 2.1 (1.0-3.2); LYMPHOCYTES % 28.4 % (18.0-39.1); MEAN CORPUSCULAR HEMOGLOBIN 32.2 pg (28-32); MEAN CORPUSCULAR HGB CONC 35.2 g/dL (31-35); MEAN CORPUSCULAR VOLUME 91.6 fL (81-99); MONOCYTES # (AUTO) 0.5 (0.2-0.8); MONOCYTES % 6.6 % (4.4-11.3); NEUTROPHILS # (AUTO) 4.7 (2.1-6.9); NEUTROPHILS % 63.2 % (38.7-80.0); PLATELET COUNT 234 x10e3/uL (140-360); RED BLOOD COUNT 3.79 x10e6/uL (3.6-5.1); RED CELL DISTRIBUTION WIDTH 12.8 % (11.7-14.4)
[2018-04-04 07:37] LABS: ANION GAP 10.7 mmol/L (8-16); BLOOD UREA NITROGEN 5 mg/dL (7-26); BUN/CREATININE RATIO 7 (6-25); CALCIUM 9.1 mg/dL (8.4-10.2); CARBON DIOXIDE 24 mmol/L (22-29); CHLORIDE 103 mmol/L (98-107); CHOLESTEROL 156 MD/DL (0-199); CREATININE, SERUM 0.72 mg/dL (0.57-1.11); EST GLOMERULAR FILTRATION RATE > 60 ML/MIN (60-); GLUCOSE 107 mg/dL (74-118); HDL CHOLESTEROL 39 MG/DL (40-60); LDL CHOLESTEROL 105 MG/DL (60-130); MAGNESIUM 1.8 MG/DL (1.3-2.1); POTASSIUM 3.7 mmol/L (3.5-5.1); SODIUM 134 mmol/L (136-145); TRIGLYCERIDES 62 MG/DL (0-149)
[2018-04-04 07:40] VITALS: BP 128/58
[2018-04-04 07:42] LABS: B-TYPE NATRIURETIC PEPTIDE2 99.7 pg/mL (0-100)
[2018-04-04 07:58] LABS: FREE T4 (FREE THYROXINE) 1.15 ng/dL (0.9-1.8)
[2018-04-04 07:59] VITALS: BP 141/76
[2018-04-04 08:02] VITALS: BP 141/76
[2018-04-04] MEDS: METOCLOPRAMIDE HCL 10 MG/2ML VIAL IV SCH (08:29)
[2018-04-04] MEDS ORDERED: CEFTIN PO (08:30)
[2018-04-04] MEDS ORDERED: REGLAN10 MG PO (08:30)
[2018-04-04] MEDS: PANTOPRAZOLE SOD 40 MG TABEC PO SCH (08:41)
[2018-04-04] MEDS: SODIUM CHLORIDE 1 GM TAB PO SCH (08:41)
[2018-04-04] MEDS: BENAZEPRIL HCL 10 MG TAB PO SCH (08:41)
--- NOTE | 2018-04-04 15:40 | Discharge Summary ---
ADMISSION DIAGNOSES: 1. Syncope. 2. Urinary tract infection. 3. Hyponatremia. 4. Hypertension. 5. Hyperlipidemia. 6. Anxiety. 7. Gastroesophageal reflux disease. 8. Hiatal hernia. 9. Nausea with poor appetite. 10. Irritable bowel syndrome. 11. Restless leg syndrome. DISCHARGE DIAGNOSES 1. Syncope. 2. Urinary tract infection. 3. Hyponatremia. 4. Hypertension. 5. Hyperlipidemia. 6. Anxiety. 7. Gastroesophageal reflux disease. 8. Hiatal hernia. 9. Nausea with poor appetite. 10. Irritable bowel syndrome. 11. Restless leg syndrome. 12. Ruled out cerebrovascular accident. HISTORY: The patient has a history of hypertension, hiatal hernia, GERD, RLS, hyperlipidemia, neuropathy and IBS. HOSPITAL COURSE: This 78-year-old female presents with frequency and dysuria over the last couple of day. She was also at [facility] yesterday when she became nauseous and then passed out. She did not hit her head. She remembers all events before and after the syncopal episode. She was passed out 1-2 minutes before she woke up to workers helping her. She had similar episode about 10 years ago. She denies fever and emesis. On admission, CT of the brain was done which was negative. Carotid Doppler negative. Echo showed an EF of 55% to 60% with mild tricuspid regurgitation and trace mitral regurgitation. For the UTI, the patient was started on Rocephin empirically. The urine culture was contaminated so the patient was discharged with Ceftin for 5 more days. On admission, sodium was 127. The patient started on IV fluids and given salt tabs. Her hydrochlorothiazide home dose was discontinued. Nephrology was also following and recommended the same. The patient continued Benazepril for her hypertension and blood pressure remained stable without the hydrochlorothiazide. She resumed home meds for anxiety, hyperlipidemia, GERD, irritable bowel syndrome and restless leg syndrome. She was started on Reglan as she says that the nausea always starts before she gets dizzy. The patient is discharged home with daughter with Reglan and Ceftin for 5 more days. She will follow up with primary care physician in 1-2 weeks. She was instructed to stop her hydrochlorothiazide. Dictated by: Mechelle Barber NP XIOMY POSADAS MD Job#: [id number]
[2018-04-04] MEDS ORDERED: SIMVASTATIN 40 MG TAB PO SCH (21:00)
[2018-04-04 21:59] LABS: OSMOLALITY,SERUM OSMOMETER 256 mOsmol/kg (280-301)
== END 2018-04-04 09:30 | disposition home or self-care (01) | DRG 683 ==
LOC: ER 19:56 → IMCU 23:51 → OBSVTOIN 04-03 09:58 → MED/SURG 04-03 15:32
PROVIDERS: ADMIT Internal Medicine; ATTEND Internal Medicine
DX: N17.9 Acute kidney failure, unspecified (principal); N39.0 Urinary tract infection, site not specified; E87.1 Hypo-osmolality and hyponatremia; R55 Syncope and collapse; K21.9 Gastro-esophageal reflux disease without esophagitis; G25.81 Restless legs syndrome; K58.9 Irritable bowel syndrome, unspecified; F41.9 Anxiety disorder, unspecified; E78.5 Hyperlipidemia, unspecified; I10 Essential (primary) hypertension; G62.9 Polyneuropathy, unspecified; R63.0 Anorexia; E86.0 Dehydration
CPT/HCPCS: 36415; 70450; 71045; 80048; 80053; 80061; 81001; 82436; 82533; 82550; 82553; 83036; 83735; 83880; 83930; 83935; 84133; 84300; 84439; 84443; 84484; 85025; 87086; 93005; 93306; 93880; 99284; G0378; J0696; J2765; J7030